=== PATIENT | female | born 2000 | race Caucasian/White ===

== ENCOUNTER 2025-02-21 07:47 | Inpatient (IN) ==
[2025-02-21] MEDS ORDERED: LIDOCAINE 1% LOCAL 20 ML VIAL INFIL PRN (08:01)
[2025-02-21] MEDS ORDERED: CALCIUM CARBONATE 500 MG CHEWABLE TAB PO PRN (08:01)
[2025-02-21] MEDS ORDERED: ACETAMINOPHEN 500 MG TAB PO PRN (08:01)
[2025-02-21 08:25] LABS: Hematocrit (blood only) 39.3 % (37.0-47.0); Hemoglobin 13.4 g/dl (12.0-16.0); Mean Corpuscular Hemoglobin 30.2 pg (25.0-34.0); Mean Corpuscular Volume 88.5 fL (80.0-100.0); Platelet Count 261 K/uL (130-400); RDW Standard Deviation 45.4 fL (36.4-46.3); Red Blood Count 4.44 M/uL (4.20-5.40); White Blood Count 14.04 K/ul (4.8-10.8)
--- NOTE | 2025-02-21 10:11 | History & Physical Report ---
Date of Service February 21, 2025 Assessment & Plan (1) Supervision of normal first : Plan: Admit to L&D. EFM/toco. Labs. IV. PCN for GBS+ Love bulb placed - 35cc sterile water. Tolerated well. Will start pitocin. Admission and Anticipated Discharge Date Admission Date: February 21, 2025 History of Present Illness Chief Complaint: IOL Primary Care Provider: NO PCP 24yo @ 39 09/28, here for IOL. GBS + - will need treatment in labor Obesity (BMI 40 and higher @ beginning of )--47 *Growth US @ 32wks - to have at [facility] *Weekly NSTs @ 34wks *BMI 40 or greater offer detailed/level II anatomy at [facility] poor anatomy scan here, f/u anatomy at [facility]- 10/30/24 limited scan at [facility], recommend another attempt in 4 weeks (11/05/24) spine, heart, ant abd wall all not seen well. *BMI 40 or above offer delivery by [facility]. [facility] US on 11/28/2024 showed EFW 58%, DVP 6.2. Class 3 obesity with mild polyhydramnios - f/u 4 weeks - poly resolved on 12/27 AC 82%, EFW 61%, DVP 4.7. RHOGAM GIVEN 12/05/24 - SP EFW >98%. Induction 02/21 Allergies Allergy/AdvReac Type Severity Reaction Status Date / Time tree nut Allergy Facial Verified 02/21/25 08:18 Swelling Home Medications Medication Instructions Recorded Confirmed Type magnesium 200 mg PO DAILY 07/25/24 02/21/25 History 21-iron fu-folic acid 1 tab PO DAILY 07/25/24 02/21/25 History [ Complete] levothyroxine 125 mcg tablet 125 mcg PO DAILY #30 tabs 01/18/25 02/21/25 Rx (Synthroid) Patient History Medical History Varicella vaccination Surgical History S/P wisdom tooth extraction Family History Aunt Breast cancer Denies family history of Ovarian cancer Colorectal cancer Social History (Updated 07/25/24 @ 08:53 by Sindi Murray Smoking Status: Never smoker Do You Dip or Chew Tobacco: No; Hx Alcohol Use: No Hx Substance Use: No Preferred Language: Grenadian Director Of Workforce Development Required: No marital status: marital status details: Guillermo Rodriguez (27) [phone] Current Living Situation: Spouse Current Living Situation Comment: lives with spouse, 3 dogs current occupational status: employed 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 No s/s chorio or abruption. Skin: no rashes, warm and dry Psychiatric: A+Ox3, euthymic affect Results & Data Vital Signs (Past 12 Hours) Vital Signs Temp Pulse Resp BP 02/21/25 08:39 85 134/71 02/21/25 08:16 36.8 C 18 02/21/25 08:02 88 148/80 H Coding Level of Care Code None Diagnoses Supervision of normal first Z34.00
[2025-02-21] MEDS: LACTATED RINGER'S 1,000 ML IV PRN (10:21)
[2025-02-21] MEDS: PENICILLIN GK 6 MU in DEXTROSE 5% 250 ML IV STA (10:21)
[2025-02-21] MEDS: OXYTOCIN 30 UNITS/NSS 30 UNITS/500 ML BAG IV PRN (10:21)
[2025-02-21] MEDS: PENICILLIN GK 3 MU in DEXTROSE 5% 100 ML IV PRN (14:29)
[2025-02-21] MEDS ORDERED: SODIUM CHLORIDE 0.9% 100 ML IV PRN (14:58)
--- NOTE | 2025-02-21 17:32 | Labor Progress Brief Note ---
Date of Service February 21, 2025 Subjective FHT Cat 1 [place] Q 2 SVE 4-5/80/-1 AROM clear fluid, IUPC and FSE placed d/t difficulty tracing. Assessment & Plan Admission and Anticipated Discharge Date Admission Date: February 21, 2025 Results & Data Vital Signs (Past 12 Hours) Vital Signs Temp Pulse Resp BP 02/21/25 17:30 78 176/99 H 02/21/25 16:21 84 132/78 02/21/25 15:21 76 139/80 02/21/25 15:15 36.7 C 20 02/21/25 14:22 68 117/63 02/21/25 13:21 77 129/75 02/21/25 12:22 93 H 130/88 02/21/25 11:21 82 115/79 02/21/25 11:00 37.1 C 02/21/25 10:21 73 136/81 02/21/25 08:39 85 134/71 02/21/25 08:16 36.8 C 18 02/21/25 08:02 88 148/80 H Coding Level of Care Code None
[2025-02-21] MEDS ORDERED: NALOXONE HCL 0.4 MG/1 ML VIAL/CARP IV PRN (17:51)
[2025-02-21] MEDS ORDERED: BUPIVACAINE 0.25% PF 30 ML VIAL EPI PRN (17:51)
[2025-02-21] MEDS ORDERED: NALBUPHINE HCL INJ 10 MG/ML AMP IV PRN (17:51)
[2025-02-21] MEDS ORDERED: NALOXONE HCL 1 MG in SODIUM CHLORIDE 0.9% 1,000 ML IV PRN (17:51)
[2025-02-21] MEDS ORDERED: LIDOCAINE 2% MPF LOCAL 5 ML VIAL EPI PRN (17:51)
[2025-02-21] MEDS ORDERED: ROPIVACAINE 0.5% PF 5 MG/ML 20 ML VIAL EPI PRN (17:51)
[2025-02-21] MEDS ORDERED: diphenhydrAMINE 50 MG/ML VIAL IV PRN (17:51)
[2025-02-21] MEDS ORDERED: SODIUM CHLORIDE 0.9% PF INJ 10 ML VIAL EPI PRN (17:51)
--- NOTE | 2025-02-21 17:51 | Anesthesiology Consultation ---
Date of Service February 21, 2025 Assessment & Plan Chart Review Chart Review: Acceptable Risk for Labor Epidural Consults Requested none History Height/Weight Height: 5 ft 3 in Weight: 125.645 kg Allergies Allergy/AdvReac Type Severity Reaction Status Date / Time tree nut Allergy Facial Verified 02/21/25 08:18 Swelling Medications Home Medications Medication Instructions Recorded Confirmed Last Taken magnesium 200 mg PO DAILY 07/25/24 02/21/25 02/20/25 21-iron fu-folic acid 1 tab PO DAILY 07/25/24 02/21/25 02/20/25 [ Complete] levothyroxine 125 mcg tablet 125 mcg PO DAILY #30 tabs 01/18/25 02/21/25 02/20/25 (Synthroid) Active Medications Generic Name Dose Route Start Last Admin Trade Name Freq PRN Reason Stop Dose Admin Lactated Ringer's 1,000 mls @ 125 mls/hr 02/21/25 08:01 02/21/25 17:44 Lr IV 02/23/25 08:00 999 mls/hr .Q8H PRN Administration L&D Protocol Protocol Penicillin G Potassium 3 mu/ 106 mls @ 100 mls/hr 02/21/25 11:01 02/21/25 16:07 Dextrose IV 03/03/25 11:00 Infused Q4H PRN Infusion GBS(+) Until Delivery Oxytocin 30 units in 500 mls @ 19 mls/hr 02/21/25 08:54 02/21/25 16:15 Pitocin 30 Units/Nss IV 02/23/25 08:53 1.14 units/hr .Q24H PRN 19 mls/hr Labor Induction/Augmentation Titration Protocol 1.14 UNITS/HR Past Medical History Medical History Varicella vaccination Past Family History Family History Aunt Breast cancer Denies family history of Ovarian cancer Colorectal cancer Past Surgical History Surgical History S/P wisdom tooth extraction Social History Smoking Status: Never smoker Do You Dip or Chew Tobacco: No Hx Alcohol Use: No Hx Substance Use: No substance use type: does not use Physical Exam Vital Signs Last Vital Signs Temp 36.7 C 02/21/25 15:15 Pulse 78 02/21/25 17:30 Resp 20 02/21/25 15:15 BP 176/99 H 02/21/25 17:30 Testing Laboratory Results 02/21/25 08:09 Blood Type A Negative 02/21/25 08:09 Antibody Screen NEGATIVE 02/21/25 08:09
[2025-02-21] MEDS: LIDOCAINE 2%/EPINEPHRINE 1:200,000 20 ML PF ONE (18:23)
[2025-02-21] MEDS: fentANYL 2 MCG/ML BUPIVacaine 0.125%-NSS 100ML BAG ONE (18:24)
[2025-02-21] MEDS: BUPIVACAINE 0.25% PF 30 ML VIAL ONE (18:27)
[2025-02-21] MEDS: SODIUM CHLORIDE 0.9% PF INJ 10 ML VIAL ONE (18:28)
[2025-02-21] MEDS: LIDOCAINE 2%/EPINEPHRINE 1:200,000 20 ML PF EPI STA (18:42)
[2025-02-21] MEDS ORDERED: LIDOCAINE 2%/EPINEPHRINE 1:200,000 20 ML PF ONE (20:19)
--- NOTE | 2025-02-21 20:44 | Anesthesia Procedure Note ---
Date of Service February 21, 2025 Anesthesia Epidural Re-Dose Vital Signs Temp Pulse Resp BP Pulse Ox 36.7 C 113 H 20 132/74 97 02/21/25 19:24 02/21/25 20:40 02/21/25 18:30 02/21/25 20:40 02/21/25 20:36 Notes Pain Intensity: 6 Dilatation (cm): 4.5 Effacement (%): 80 Called by nursing to evaluate epidural as the patient is having increased pain. The epidural was re-dosed with the following medications (all medications via epidural route) after negative aspiration of the epidural catheter for CSF/HEME. 2% lidocaine w epi via epidural After Epidural Re-Dose Mental Status: alert / awake / arousable and participated in evaluation Pain: see Notes below Airway Patency, RR, SpO2: stable & adequate BP & HR: stable & adequate Additional Notes: o improvement epidural to be replaced
[2025-02-21] MEDS ORDERED: PHENYLEPHRINE 100MCG/ML 5ML SYR IV PRN (20:47)
--- NOTE | 2025-02-21 22:53 | Labor Progress Brief Note ---
Date of Service February 21, 2025 Subjective Comfortable with epidural. FHT Cat 1 [place] Q 2-3 SVE 10/100/0 Will labor down and when she feels urge to push, will begin pushing. Assessment & Plan Admission and Anticipated Discharge Date Admission Date: February 21, 2025 Results & Data Vital Signs (Past 12 Hours) Vital Signs Temp Pulse Resp BP Pulse Ox 02/21/25 22:46 107 H 99 02/21/25 22:41 83 100 02/21/25 22:39 92 H 138/77 02/21/25 22:36 82 100 02/21/25 22:31 81 99 02/21/25 22:26 98 H 99 02/21/25 22:21 80 98 02/21/25 22:16 97 H 96 02/21/25 22:11 105 H 97 02/21/25 22:10 91 H 115/66 02/21/25 22:06 100 H 97 02/21/25 22:01 106 H 98 02/21/25 21:56 113 H 96 02/21/25 21:54 105 H 123/65 02/21/25 21:51 97 H 97 02/21/25 21:46 111 H 96 02/21/25 21:41 111 H 96 02/21/25 21:40 108 H 117/67 02/21/25 21:36 115 H 98 02/21/25 21:31 117 H 96 02/21/25 21:26 116 H 97 02/21/25 21:25 114 H 116/57 L 02/21/25 21:21 114 H 96 02/21/25 21:16 107 H 96 02/21/25 21:11 36.9 C 120 H 97 02/21/25 21:06 111 H 96 02/21/25 21:05 121 H 123/68 02/21/25 21:01 118 H 95 02/21/25 21:00 113 H 132/70 02/21/25 20:56 116 H 96 02/21/25 20:55 115 H 134/63 02/21/25 20:51 116 H 95 02/21/25 20:48 114 H 128/62 02/21/25 20:46 97 02/21/25 20:46 114 H 02/21/25 20:46 115 H 130/68 02/21/25 20:44 116 H 135/69 02/21/25 20:42 115 H 136/75 02/21/25 20:41 120 H 96 02/21/25 20:40 113 H 132/74 02/21/25 20:38 125 H 131/75 02/21/25 20:36 120 H 130/78 97 02/21/25 20:34 129 H 135/73 02/21/25 20:32 121 H 134/89 02/21/25 20:31 119 H 98 02/21/25 20:26 120 H 99 02/21/25 20:22 117 H 109/57 L 02/21/25 20:21 121 H 100 02/21/25 20:20 120 H 116/56 L 02/21/25 20:18 118 H 132/67 02/21/25 20:16 119 H 132/63 100 02/21/25 20:14 114 H 119/70 02/21/25 20:11 120 H 123/66 98 02/21/25 20:10 114 H 120/67 02/21/25 20:08 111 H 140/65 02/21/25 20:06 115 H 98 02/21/25 20:01 109 H 98 02/21/25 19:56 100 02/21/25 19:56 103 H 02/21/25 19:56 111 H 134/67 02/21/25 19:51 97 H 99 02/21/25 19:46 120 H 100 02/21/25 19:41 91 H 125/70 100 02/21/25 19:36 104 H 100 02/21/25 19:31 92 H 100 02/21/25 19:26 102 H 100 02/21/25 19:25 80 121/59 L 02/21/25 19:24 36.7 C 02/21/25 19:21 111 H 100 02/21/25 19:20 90 120/70 02/21/25 19:16 116 H 100 02/21/25 19:15 114 H 112/66 02/21/25 19:13 107 H 115/70 02/21/25 19:11 99 H 124/71 100 02/21/25 19:09 102 H 145/92 H 02/21/25 19:07 112 H 126/60 02/21/25 19:06 112 H 100 02/21/25 19:04 109 H 137/57 L 02/21/25 19:01 100 02/21/25 19:01 111 H 02/21/25 19:01 114 H 115/62 02/21/25 18:59 107 H 112/62 02/21/25 18:57 109 H 118/62 02/21/25 18:56 107 H 100 02/21/25 18:55 101 H 125/73 02/21/25 18:51 110 H 100 02/21/25 18:49 111 H 113/59 L 02/21/25 18:47 106 H 121/69 02/21/25 18:46 109 H 100 02/21/25 18:45 108 H 123/69 02/21/25 18:43 111 H 134/79 02/21/25 18:41 100 02/21/25 18:41 107 H 02/21/25 18:41 110 H 127/76 02/21/25 18:39 96 H 128/71 02/21/25 18:37 101 H 136/74 02/21/25 18:36 99 H 100 02/21/25 18:35 106 H 128/71 02/21/25 18:33 109 H 143/61 H 02/21/25 18:31 100 02/21/25 18:31 85 02/21/25 18:31 111 H 126/59 L 02/21/25 18:30 20 02/21/25 18:30 20 02/21/25 18:29 78 128/60 02/21/25 18:27 78 144/64 H 02/21/25 18:26 79 100 02/21/25 18:25 100 H 152/65 H 02/21/25 18:23 93 H 131/102 H 02/21/25 18:21 108 H 96 02/21/25 18:16 85 100 02/21/25 18:11 76 100 02/21/25 18:06 76 100 02/21/25 18:01 104 H 98 02/21/25 17:56 98 H 100 02/21/25 17:51 83 100 02/21/25 17:30 78 176/99 H 02/21/25 16:21 84 132/78 02/21/25 15:21 76 139/80 02/21/25 15:15 36.7 C 20 02/21/25 14:22 68 117/63 02/21/25 13:21 77 129/75 02/21/25 12:22 93 H 130/88 02/21/25 11:21 82 115/79 02/21/25 11:00 37.1 C Coding Level of Care Code None
[2025-02-21] MEDS: fentANYL 2 MCG/ML BUPIVacaine 0.125%-NSS 100ML BAG EPI PRN (23:00)
--- NOTE | 2025-02-22 01:01 | Delivery Summary ---
Vaginal Delivery Summary Date of Service February 22, 2025 Vaginal Delivery Summary and 1st Degree LAC Vaginal Delivery Summary: Pre-delivery diagnoses: 24yo @ 39 3/7, LGA, GBS+, obesity Post-delivery diagnoses: same Procedure: spontaneous vaginal delivery Surgeon: Dena Conde DO Complications: none Findings: Viable female . Apgars: 7/8 . Weight pending, please see nursery records Estimated QBL:100ml Description of delivery: The patient progressed to complete with epidural anesthesia. She then began to push. She spontaneously vaginally delivered a viable from the cephalic presentation. The head delivered in JOMAR position. The anterior shoulder delivered, followed by the posterior shoulder, followed by the body. The baby was placed on mother's abdomen and a spontaneous cry was heard. Delayed cord clamping was employed, and the cord was doubly clamped and cut. Cord blood was obtained. The placenta was delivered spontaneously intact with a 3-vessel cord. The uterus and vagina were swept of clots and debris. IV pitocin was given. The uterus became firm. The cervix, vagina, and perineum were inspected. 1st degree perineal laceration noted and repaired with 3-0 Vicryl. Excellent hemostasis was observed. The mother and baby are recovering in stable and good condition in the room. Sponge, needle and instrument counts were correct x 2. Dena Conde DO [facility] Vaginal Delivery Charge Vaginal Delivery Codes: 58185 global code for the antepartum, delivery, and post- Delivery Type Details: and 1st Degree LAC
[2025-02-22] MEDS: OXYTOCIN 30 UNITS/NSS 30 UNITS/500 ML BAG IV PRN (01:08)
[2025-02-22] MEDS ORDERED: ACETAMINOPHEN 325 MG TAB PO PRN (01:20)
[2025-02-22] MEDS ORDERED: HYDROCORTISONE ACETATE 25 MG SUPP PR PRN (01:20)
[2025-02-22] MEDS ORDERED: OXYTOCIN 30 UNITS/NSS 30 UNITS/500 ML BAG IV PRN (01:20)
--- NOTE | 2025-02-22 01:34 | Anesthesia Procedure Note ---
Date of Service February 22, 2025 Anesthesia Post Epidural Note Vital Signs Vital Signs: Temp Pulse Resp BP Pulse Ox 37.0 C 97 H 20 138/68 98 02/21/25 23:15 02/22/25 01:24 02/21/25 18:30 02/22/25 01:24 02/22/25 01:11 Pain Intensity Buttock: Pain Intensity: 8 Notes Mental Status: alert / awake / arousable and participated in evaluation Nausea / Vomiting: adequately controlled Pain: adequately controlled Airway Patency, RR, SpO2: stable & adequate BP & HR: stable & adequate Hydration State: stable & adequate Neuraxial Anesthesia: was administered and sensory block is resolving Anesthetic Complications: no major complications apparent and Pt Satisfied with anesthetic care Epidural: Removed without complications and With tip intact
[2025-02-22] MEDS: IBUPROFEN 600 MG TAB PO PRN (02:36)
[2025-02-22] MEDS: BENZOCAINE 20% SPRY 85 APPLN/85 GM CAN EXT PRN (04:02)
[2025-02-22] MEDS: LEVOTHYROXINE SODIUM 125 MCG TABLET PO SCH (06:21)
[2025-02-22] MEDS: DOCUSATE SODIUM 100 MG CAP PO SCH (09:02)
[2025-02-22] MEDS: MAGNESIUM OXIDE 400 MG TAB PO SCH (09:02)
[2025-02-22] MEDS: PRENATAL VITAMIN 1 TAB PO SCH (09:02)
[2025-02-22] MEDS: DIPHTHER/TETAN/PERTUS Vaccine (Tdap, Adol/Adult) 0.5mL IM ONE (19:36)
[2025-02-22] MEDS: BUPIVACAINE 0.25% PF 30 ML VIAL EPI STA (19:37)
[2025-02-22] MEDS: SODIUM CHLORIDE 0.9% PF INJ 10 ML VIAL EPI STA (19:37)
[2025-02-23 00:33] VITALS: BP 135/79; PULSE 76; TEMP 98.2; O2SAT 97
[2025-02-23 05:55] LABS: Hematocrit (blood only) 34.7 % (37.0-47.0); Hemoglobin 11.7 g/dl (12.0-16.0)
--- NOTE | 2025-02-23 07:09 | Obstetrical Progress Note ---
Date of Service February 23, 2025 Assessment & Plan (1) Encounter for assessment: Plan Desires d/c today. Instructions given. f/u in 6 weeks. Day #:: 2 Subjective Ambulation: ambulating normally Voiding: no voiding problems Passing Gas:: Yes Diet Tolerance:: regular diet Lochia:: Small Feeding Type:: breast feeding Physical Exam Constitutional WD/WN, vitals as above Respiratory normal respiratory effort, lungs clear to auscultation Cardiovascular RRR, no murmur, no edema Extremities: + edema (tr); no calf tenderness Gastrointestinal (Abdomen) soft, nt, nd, ff/nt at u Psychiatric A+Ox3, euthymic affect Results & Data Vital Signs (Past 12 Hours) Vital Signs Temp Pulse Resp BP Pulse Ox O2 Del Method 02/23/25 00:31 36.8 C 76 16 135/79 97 Room Air 02/22/25 20:25 36.7 C 75 16 129/85 96 Room Air
[2025-02-23 08:55] VITALS: RESP 18
== END 2025-02-23 11:30 | disposition home or self-care (01) | DRG 806 ==
LOC: 4S1 07:47 → 4E2 02-22 04:05